=== PATIENT | female | born 1950 | race Caucasian/White ===

== ENCOUNTER → 2025-01-05 | Outpatient (REF) | payer MEDICARE ==
[2025-01-05 12:43] LABS: VITAMIN B12 LEVEL > 2000 PG/ML (211-911)
[2025-01-06 15:49] LABS: IRON (FE) 65 UG/DL (50-170); PERCENT SATURATION 19.8 % (13.2-45.0)
== END ==
LOC: M LAB REF 11:54
PROVIDERS: ATTEND Internal Medicine
DX: D51.9 Vitamin B12 deficiency anemia, unspecified (principal); N39.0 Urinary tract infection, site not specified

== ENCOUNTER → 2025-02-13 | Outpatient (CLI) | payer MEDICARE, OTHER ==
[2025-02-13 16:25] LABS: HEPATITIS C VIRUS ABY INDEX < 0.02 INDEX (<0.8)
[2025-02-16 21:07] LABS: ANA PATTERN 2 Nuclear, Homogeneous; ANA TITER 2 1:80 titer (NEGATIVE)
== END ==
LOC: M RAD 08:50
PROVIDERS: ATTEND Internal Medicine
DX: I10 Essential (primary) hypertension (principal); K76.0 Fatty (change of) liver, not elsewhere classified; R16.0 Hepatomegaly, not elsewhere classified; R93.2 Abnormal findings on diagnostic imaging of liver and biliary tract

== ENCOUNTER → 2025-03-05 | Outpatient (CLI) | payer MEDICARE, OTHER | LOC: M PLAIMG 10:53 | PROVIDERS: ATTEND Internal Medicine | DX: R01.1 Cardiac murmur, unspecified (principal); I36.1 Nonrheumatic tricuspid (valve) insufficiency ==

== ENCOUNTER → 2025-03-24 | Outpatient (REF) | payer MEDICARE, OTHER | LOC: M LAB REF 17:11 | PROVIDERS: ATTEND Physician Assistant Medical | DX: R31.9 Hematuria, unspecified (principal) ==

== ENCOUNTER → 2025-04-13 | Outpatient (REF) | payer MEDICARE, OTHER ==
[2025-04-13 18:32] LABS: RHEUMATOID FACTOR QUANT 3.6 IU/ML (<14)
[2025-04-13 18:34] LABS: VITAMIN B12 LEVEL 472.0 PG/ML (211-911)
== END ==
LOC: M LAB REF 17:24
PROVIDERS: ATTEND Internal Medicine
DX: M25.50 Pain in unspecified joint (principal); D51.9 Vitamin B12 deficiency anemia, unspecified; N39.0 Urinary tract infection, site not specified